=== PATIENT | male | born 1945 | race Hispanic/Latino ===

== ENCOUNTER 2019-07-25 20:20 | Emergency (ER) | payer SELFPAY ==
[2019-07-25] MEDS ORDERED: SODIUM CHLORIDE 0.9% 1000ML 1,000 ML IVS ONE (20:41)
[2019-07-25] MEDS ORDERED: SODIUM CHLORIDE 0.9% (FLUSH) 10 ML SYG IV PRN (20:41)
[2019-07-25] MEDS ORDERED: ACETAMINOPHEN 500 MG TAB PO ONE (20:41)
--- NOTE | 2019-07-25 21:02 | ED.PDOC ---
History of Present Illness - General Chief Complaint: General Stated Complaint: dizzy, fever Time Seen by Provider: 07/25/19 20:41 Source: patient, RN notes reviewed, Vital Signs reviewed, family, medicine man Exam Limitations: no limitations - History of Present Illness Initial Comments: Pt is a 73 y/o HM who arrived from [place] today. Pt was dx with hypertension and high blood sugar and started on medicine in [place]. Pt is noted to be febrile here. Pt also c/o generalized weakness and chills. Pt denies cough/sob/dysuria/cp/n/v/d. Timing/Duration: 24 hours Severity: moderate Improving Factors: nothing Worsening Factors: nothing Associated Symptoms: fever/chills, malaise, weakness Allergies/Adverse Reactions: Allergies NO KNOWN ALLERGY Allergy (Verified 07/25/19 20:46) Home Medications: Ambulatory Orders Cinnarizine 75 mg PO PRN 07/25/19 Enalapril Maleate 10 mg PO DAILY 07/25/19 Glyburide 5 mg PO DAILY 07/25/19 Review of Systems - Review of Systems Constitutional: States: chills, fever, malaise, weakness. Denies: diaphoresis EENTM: Denies: blurred vision, nose congestion, throat pain, mouth pain Respiratory: Denies: cough, short of breath, stridor, wheezing Cardiology: Denies: chest pain, palpitations, syncope Gastrointestinal/Abdominal: Denies: abdominal pain, constipation, diarrhea, nausea, vomiting Genitourinary: Denies: dysuria, frequency, pain Musculoskeletal: Denies: back pain, joint pain, joint swelling, muscle pain, neck pain Skin: States: no symptoms reported Neurological: States: weakness. Denies: headache, numbness, paresthesia Endocrine: States: no symptoms reported Hematologic/Lymphatic: States: no symptoms reported All other Systems: Reviewed and Negative Past Medical History (General) - Patient Medical History Hx Seizures: No Hx Stroke: No Hx Dementia: No Hx Asthma: No Hx of COPD: No Hx Cardiac Disorders: No Hx Congestive Heart Failure: No Hx Pacemaker: No Hx Hypertension: Yes Hx Thyroid Disease: No Hx Diabetes: Yes Hx Gastroesophageal Reflux: No Hx Renal Disease: No Hx Cancer: No Hx of HIV: No Hx Hepatitis C: No Hx MRSA: No Surgical History: other - Social History Hx Tobacco Use: No Hx Alcohol Use: No Family Medical History - Family History Mother Family History: Unknown Physical Exam - Physical Exam General Appearance: Alert, Comfortable, Well Developed, Well Groomed, Well Hydrated, Well Nourished Eye Exam: bilateral normal Ears, Nose, Throat: hearing grossly normal, normal ENT inspection, normal pharynx Neck: non-tender, full range of motion, supple, normal inspection Respiratory: chest non-tender, lungs clear, normal breath sounds, no respiratory distress, no accessory muscle use, respiratory distress Cardiovascular/Chest: normal peripheral pulses, regular rate, rhythm, no edema, no gallop, no JVD, no murmur Gastrointestinal/Abdominal: normal bowel sounds, non tender, soft, no organomegaly Back Exam: no CVA tenderness, no vertebral tenderness Extremity: normal range of motion, non-tender 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, no motor/sensory deficits, alert, normal mood/affect, oriented x 3 Skin Exam: normal color, warm/dry Lymphatic: no adenopathy Progress - Results/Orders Results/Orders: 07/25/19 20:41 IV Care:Saline Lock per Protoc QSHIFT Telemetry .ONCE CARDIAC ENZYME GROUP Stat COMPLETE METABOLIC PROFILE Stat Sodium Chloride 0.9% (Flush) [Saline Flush Syringe] 10 ml IV PRN PRN BLOOD CULTURE Stat 07/25/19 21:27 STREP A SCREEN CULTURE Stat 07/25/19 22:45 LACTIC ACID Q2H 07/26/19 00:45 LACTIC ACID Q2H 07/26/19 02:45 LACTIC ACID Q2H 07/26/19 04:45 LACTIC ACID Q2H 07/26/19 06:45 LACTIC ACID Q2H 07/26/19 08:45 LACTIC ACID Q2H 07/26/19 10:45 LACTIC ACID Q2H 07/26/19 12:45 LACTIC ACID Q2H 07/26/19 14:45 LACTIC ACID Q2H 07/26/19 16:45 LACTIC ACID Q2H 07/26/19 18:45 LACTIC ACID Q2H Laboratory Results - last 24 hr 07/25/19 07/25/19 07/25/19 20:41 20:41 20:41 WBC 4.2 L RBC 4.66 L Hgb 14.5 Hct 41.8 L MCV 89.7 MCH 31.1 H MCHC 34.7 RDW 13.0 Plt Count 131 MPV 9.3 Absolute Neuts (auto) Not Reportable Absolute Lymphs (auto) Not Reportable Absolute Monos (auto) Not Reportable Absolute Eos (auto) Not Reportable Neutrophils % Not Reportable Lymphocytes % Not Reportable Monocytes % Not Reportable Eosinophils % Not Reportable Basophils % Not Reportable PT 11.1 H INR 1.11 PTT (SP) 29.1 Sodium 132 L Potassium 3.6 Chloride 95 L Carbon Dioxide 25 Anion Gap 15.6 BUN 15 Creatinine 1.19 BUN/Creatinine Ratio 12.6 Random Glucose 310 H Serum Osmolality 277.1 Lactic Acid Calcium 9.1 Total Bilirubin 0.6 AST 57 H ALT 37 Alkaline Phosphatase 51 Creatine Kinase 227 H* CK-MB (CK-2) 1.7 Troponin I < 0.02 Serum Total Protein 7.3 Albumin 3.8 Globulin 3.5 Albumin/Globulin Ratio 1.1 Urine Color Urine Appearance Urine pH Ur Specific [place] Urine Protein Urine Glucose (UA) Urine Ketones Urine Blood Urine Nitrite Urine Bilirubin Urine Urobilinogen Ur Leukocyte Esterase Urine RBC Urine WBC Ur Epithelial Cells Urine Bacteria Group A Strep Rapid 07/25/19 07/25/19 07/25/19 20:45 21:13 21:27 WBC RBC Hgb Hct MCV MCH MCHC RDW Plt Count MPV Absolute Neuts (auto) Absolute Lymphs (auto) Absolute Monos (auto) Absolute Eos (auto) Neutrophils % Lymphocytes % Monocytes % Eosinophils % Basophils % PT INR PTT (SP) Sodium Potassium Chloride Carbon Dioxide Anion Gap BUN Creatinine BUN/Creatinine Ratio Random Glucose Serum Osmolality Lactic Acid 2.4 H* Calcium Total Bilirubin AST ALT Alkaline Phosphatase Creatine Kinase CK-MB (CK-2) Troponin I Serum Total Protein Albumin Globulin Albumin/Globulin Ratio Urine Color Yellow Urine Appearance Clear Urine pH 6.5 Ur Specific [place] 1.015 Urine Protein Trace Urine Glucose (UA) 500 H Urine Ketones Negative Urine Blood Trace-lysed H Urine Nitrite Negative Urine Bilirubin Negative Urine Urobilinogen 4.0 H Ur Leukocyte Esterase Negative Urine RBC 0 Urine WBC 0-1 Ur Epithelial Cells 0 Urine Bacteria Rare Group A Strep Rapid Negative 07/25/19 20:41 IV Care:Saline Lock per Protoc QSHIFT Telemetry .ONCE Sodium Chloride 0.9% (Flush) [Saline Flush Syringe] 10 ml IV PRN PRN BLOOD CULTURE Stat 07/25/19 21:27 STREP A SCREEN CULTURE Stat 07/26/19 00:45 LACTIC ACID Q2H 07/26/19 02:45 LACTIC ACID Q2H 07/26/19 04:45 LACTIC ACID Q2H 07/26/19 06:45 LACTIC ACID Q2 07/26/19 08:45 LACTIC ACID Q2 07/26/19 10:45 LACTIC ACID Q2 07/26/19 12:45 LACTIC ACID Q2H 07/26/19 14:45 LACTIC ACID Q2 07/26/19 16:45 LACTIC ACID Q2 07/26/19 18:45 LACTIC ACID Q2H Laboratory Results - last 24 hr 07/25/19 07/25/19 07/25/19 20:41 20:41 20:41 WBC 4.2 L RBC 4.66 L Hgb 14.5 Hct 41.8 L MCV 89.7 MCH 31.1 H MCHC 34.7 RDW 13.0 Plt Count 131 MPV 9.3 Absolute Neuts (auto) Not Reportable Absolute Lymphs (auto) Not Reportable Absolute Monos (auto) Not Reportable Absolute Eos (auto) Not Reportable Neutrophils % Not Reportable Neutrophils % (Manual) 68.0 Lymphocytes % Not Reportable Lymphocytes % (Manual) 19.0 Monocytes % Not Reportable Monocytes % (Manual) 9.0 Eosinophils % Not Reportable Basophils % Not Reportable Band Neutrophils 4.0 H Platelet Estimate Normal Normal RBC Morphology Normal rbc morph PT 11.1 H INR 1.11 PTT (SP) 29.1 Sodium 132 L Potassium 3.6 Chloride 95 L Carbon Dioxide 25 Anion Gap 15.6 BUN 15 Creatinine 1.19 BUN/Creatinine Ratio 12.6 Random Glucose 310 H Serum Osmolality 277.1 Lactic Acid Calcium 9.1 Total Bilirubin 0.6 AST 57 H ALT 37 Alkaline Phosphatase 51 Creatine Kinase 227 H* CK-MB (CK-2) 1.7 CK-MB (CK-2) % Not Reportable Troponin I < 0.02 Serum Total Protein 7.3 Albumin 3.8 Globulin 3.5 Albumin/Globulin Ratio 1.1 Urine Color Urine Appearance Urine pH Ur Specific [place] Urine Protein Urine Glucose (UA) Urine Ketones Urine Blood Urine Nitrite Urine Bilirubin Urine Urobilinogen Ur Leukocyte Esterase Urine RBC Urine WBC Ur Epithelial Cells Urine Bacteria Group A Strep Rapid 07/25/19 07/25/19 07/25/19 20:45 21:13 21:27 WBC RBC Hgb Hct MCV MCH MCHC RDW Plt Count MPV Absolute Neuts (auto) Absolute Lymphs (auto) Absolute Monos (auto) Absolute Eos (auto) Neutrophils % Neutrophils % (Manual) Lymphocytes % Lymphocytes % (Manual) Monocytes % Monocytes % (Manual) Eosinophils % Basophils % Band Neutrophils Platelet Estimate Normal RBC Morphology PT INR PTT (SP) Sodium Potassium Chloride Carbon Dioxide Anion Gap BUN Creatinine BUN/Creatinine Ratio Random Glucose Serum Osmolality Lactic Acid 2.4 H* Calcium Total Bilirubin AST ALT Alkaline Phosphatase Creatine Kinase CK-MB (CK-2) CK-MB (CK-2) % Troponin I Serum Total Protein Albumin Globulin Albumin/Globulin Ratio Urine Color Yellow Urine Appearance Clear Urine pH 6.5 Ur Specific [place] 1.015 Urine Protein Trace Urine Glucose (UA) 500 H Urine Ketones Negative Urine Blood Trace-lysed H Urine Nitrite Negative Urine Bilirubin Negative Urine Urobilinogen 4.0 H Ur Leukocyte Esterase Negative Urine RBC 0 Urine WBC 0-1 Ur Epithelial Cells 0 Urine Bacteria Rare Group A Strep Rapid Negative 07/25/19 22:45 WBC RBC Hgb Hct MCV MCH MCHC RDW Plt Count MPV Absolute Neuts (auto) Absolute Lymphs (auto) Absolute Monos (auto) Absolute Eos (auto) Neutrophils % Neutrophils % (Manual) Lymphocytes % Lymphocytes % (Manual) Monocytes % Monocytes % (Manual) Eosinophils % Basophils % Band Neutrophils Platelet Estimate Normal RBC Morphology PT INR PTT (SP) Sodium Potassium Chloride Carbon Dioxide Anion Gap BUN Creatinine BUN/Creatinine Ratio Random Glucose Serum Osmolality Lactic Acid 1.3 Calcium Total Bilirubin AST ALT Alkaline Phosphatase Creatine Kinase CK-MB (CK-2) CK-MB (CK-2) % Troponin I Serum Total Protein Albumin Globulin Albumin/Globulin Ratio Urine Color Urine Appearance Urine pH Ur Specific [place] Urine Protein Urine Glucose (UA) Urine Ketones Urine Blood Urine Nitrite Urine Bilirubin Urine Urobilinogen Ur Leukocyte Esterase Urine RBC Urine WBC Ur Epithelial Cells Urine Bacteria Group A Strep Rapid - EKG/XRAY/CT Comments: NSR @ 77bpm, NAD, T wave changes anteriorly consider ischemia, abnormal ekg Xray Comments: No acute pulmonary disease. Departure - Departure Clinical Impression: Fever Qualifiers: Fever type: unspecified Qualified Code(s): R50.9 - Fever, unspecified Time of Disposition: 00:23 Disposition: Discharge to Home or Self Care Condition: Good Departure Forms: ED Discharge - Pt. Copy, Patient Portal Self Enrollment Instructions: Fever of Unknown Origin Diet: diabetic diet Activity: increase activity as tolerated Referrals: Israel Christie MD [Active Staff] - 1-2 Weeks Home Medications: Ambulatory Orders Cinnarizine 75 mg PO PRN 07/25/19 Enalapril Maleate 10 mg PO DAILY 07/25/19 Glyburide 5 mg PO DAILY 07/25/19
--- NOTE | 2019-07-25 21:15 | RAD ---
EXAM:Chest,2 Views CLINICAL INDICATION: Fever COMPARISON: There is no previous study for comparison. FINDINGS:Two views of the chest were obtained. The heart size is normal. The pulmonary vascularity is unremarkable. The lungs are clear. There is no consolidation, infiltrate, pleural effusion, or pneumothorax. IMPRESSION: No evidence of active pulmonary disease. Electronically signed by: Joshua Bean MD 07/25/2019 9:14 PM CDT
[2019-07-26 00:13] VITALS: BP 118/71; O2SAT 95
[2019-07-26 00:47] VITALS: TEMP 98.3
== END 2019-07-26 00:47 | disposition home or self-care (01) ==
LOC: ER 20:20
DX: R50.9 Fever, unspecified (principal); E11.9 Type 2 diabetes mellitus without complications; I10 Essential (primary) hypertension; Z79.899 Other long term (current) drug therapy
CPT/HCPCS: 71046; 80053; 81001; 82550; 82553; 83605; 84484; 85025; 85610; 85730; 87070; 87502; 87880; J7030